=== PATIENT | male | born 1995 | race Two or more races ===

== ENCOUNTER 2021-12-22 16:12 | Emergency (ER) | payer MEDICAID ==
[~2021-12-22] VITALS: Ht 165.1 cm; Wt 70.0 kg
[2021-12-22] MEDS ORDERED: KETOROLAC 60MG/2ML VIAL IM ONE (16:45)
[2021-12-22] MEDS ORDERED: KETOROLAC 60MG/2ML VIAL IM SCH (18:15)
[2021-12-22] MEDS ORDERED: LORAZEPAM 2MG/ML CPJ IM ONE (18:45)
[2021-12-22 18:58] LABS: BASOPHILS % 0.2 % (0.0-2.0); EOSINOPHILS % 0.1 % (0.0-5.0); HEMATOCRIT. 49.6 % (42.0-52.0); HEMOGLOBIN. 16.7 g/dL (14.0-18.0); LYMPHOCYTES % 19.5 % (20.0-50.0); MEAN CORPUSCULAR HEMOGLOBIN 28.7 pg (28.0-32.0); MEAN CORPUSCULAR VOLUME 85.2 fL (80.0-94.0); MEAN PLATELET VOLUME 7.6 fl (7.4-10.4); MONOCYTES % 6.5 % (2.0-8.0); NEUTROPHILS % 73.7 % (40.0-76.0); PLATELET 427 x1000/uL (130-400); RED BLOOD CELL COUNT 5.82 mill/uL (4.7-6.1); RED CELL DISTRIBUTION WIDTH 13.5 % (11.6-14.6)
[2021-12-22 19:12] LABS: CHLORIDE 102 mEq/L (98-107)
[2021-12-22 19:16] LABS: ETHANOL BLOOD < 10 mg/dL
[2021-12-22] MEDS ORDERED: OLANZAPINE 10 MG/VIAL IM ONE (20:45)
[2021-12-22 22:08] LABS: CLARITY URINE CLEAR (CLEAR); COLOR URINE YELLOW (YELLOW); KETONES URINE 3+ (NEGATIVE); LEUKOCYTE ESTERASE URINE NEGATIVE (NEGATIVE); NITRITE URINE NEGATIVE (NEGATIVE); OCCULT BLOOD URINE NEGATIVE (NEGATIVE); PROTEIN URINE NEGATIVE (NEGATIVE); SPECIFIC GRAVITY URINE 1.017 (1.005-1.030)
[2021-12-22 22:18] LABS: *BARBITURATES SCREEN URINE NEGATIVE (NEGATIVE); *BENZODIAZEPINES SCREEN URINE NEGATIVE (NEGATIVE); *COCAINE SCREEN URINE NEGATIVE (NEGATIVE); METHADONE URINE SCREEN NEGATIVE (NEGATIVE); OPIATES URINE SCREEN NEGATIVE (NEGATIVE)
[2021-12-22 22:19] LABS: *AMPHETAMINES SCREEN URINE NEGATIVE (NEGATIVE); CANNABINOID URINE SCREEN PRESUMTIVE POSITIVE (NEGATIVE); PHENCYCLIDINE URINE SCREEN NEGATIVE (NEGATIVE)
[2021-12-22] MEDS ORDERED: POTASSIUM CHLORIDE 20MEQ TABLET SR PO ONE (22:45)
[2021-12-23] MEDS ORDERED: ZIPRASIDONE MESYLATE 20MG/VIAL IM ONE (03:15)
[2021-12-23] MEDS: OLANZAPINE 5MG TABLET ODT PO SCH ×2 (11:36→18:04)
[2021-12-23] MEDS ORDERED: LORAZEPAM 1MG TABLET PO ONE (15:30)
[2021-12-23] MEDS ORDERED: DIPHENHYDRAMINE 50MG CAPSULE PO ONE (15:30)
[2021-12-23] MEDS ORDERED: HALOPERIDOL 5MG TABLET PO ONE (15:30)
[2021-12-23] MEDS ORDERED: LORAZEPAM 2MG/ML CPJ IM ONE ×2 (20:00→22:00)
[2021-12-23] MEDS ORDERED: LORAZEPAM 2MG/ML CPJ IM SCH (20:00)
[2021-12-23] MEDS ORDERED: HALOPERIDOL LACTATE 5MG/ML VIAL IM ONE (20:30)
[2021-12-24] MEDS ORDERED: HALOPERIDOL LACTATE 5MG/ML VIAL IM ONE
[2021-12-24] MEDS ORDERED: ZIPRASIDONE MESYLATE 20MG/VIAL IM ONE (01:15)
[2021-12-24] MEDS: OLANZAPINE 5MG TABLET ODT PO SCH (09:52)
[2021-12-24 18:25] VITALS: BP 128/79
== END 2021-12-24 18:55 ==
LOC: ER 16:12
DX: F22 Delusional disorders (principal); R45.851 Suicidal ideations; R53.83 Other fatigue; R45.1 Restlessness and agitation; M54.89 Other dorsalgia; F12.90 Cannabis use, unspecified, uncomplicated; F19.10 Other psychoactive substance abuse, uncomplicated; Z20.822 Contact with and (suspected) exposure to COVID-19; Z78.1 Physical restraint status
CPT/HCPCS: 36415; 71045; 80053; 80305; 80307; 80320; 80329; 81003; 85025; 93005; 96372; 99285; C9803; J1630; J1885; J2060; J3486; J3490; U0003; U0005; Z7610; Q0163; G0480